=== PATIENT | male | born 1955 | race Caucasian/White ===

== ENCOUNTER 2024-03-23 12:29 | Observation (INO) ==
[~2024-03-23 12:29] MED LIST: Naloxone 0.4 mg VIAL 0.4 mg/ml 1 ml VIAL IV PRN; fentaNYL 100 mcg/2 ml 50 MCG/ML VIAL IV PRN
[2024-03-23] MEDS: Lactated Ringers 1000 ml BAG 1,000 ML IV SCH (13:30)
[2024-03-23 13:48] LABS: Rapid COVID-19 Molecular Undetected (Undetected)
[2024-03-23] MEDS ORDERED: fentaNYL 100 mcg/2 ml 50 MCG/ML VIAL ONE (13:48)
[2024-03-23] MEDS ORDERED: Lidocaine 2% PF 5 ML VIAL ONE (13:48)
[2024-03-23] MEDS ORDERED: Midazolam 2 mg/2 ml VIAL 1 mg/ml 2 ml VIAL (2 mg) ONE (13:48)
[2024-03-23] MEDS ORDERED: Propofol 10 MG/ML 20 ML BTL ONE (13:48)
[2024-03-23] MEDS ORDERED: Ondansetron 4 mg VIAL 2 MG/ML 2 ml VIAL IV PRN (14:30)
[2024-03-23] MEDS ORDERED: Glycopyrrolate IV 0.2 MG/ML 1 ML VIAL ONE (15:31)
[2024-03-23] MEDS ORDERED: Ondansetron 4 mg VIAL 2 MG/ML 2 ml VIAL ONE (15:31)
[2024-03-23] MEDS ORDERED: Dexamethasone IV 4 MG/ML VIAL 1 ml VIAL ONE (15:31)
[2024-03-23] MEDS ORDERED: Sterile Water for Inj 10 ML ONE (15:32)
[2024-03-23] MEDS ORDERED: Furosemide 20 mg/2 ml IV VIAL ONE (15:57)
[2024-03-23] MEDS: Neomycin/Polym/Bacit TOP OINT 15 GM TOPICAL SCH (18:01)
[2024-03-23] MEDS: Ampicillin ADVAN 2 GM in NS 0.9% 100 ML 100 ML IVPB ONE (18:01)
[2024-03-23] MEDS: Buffered Lidocaine 1% SYRIN 1 ml INTRADERM ONE (18:01)
[2024-03-23] MEDS: Gentamicin ADULT 450 MG in NS 0.9% 100 ml BAG 100 ML IVPB ONE (18:01)
[2024-03-23] MEDS: NS 0.9% 1000 ml BAG 1,000 ML IV SCH (18:40)
[2024-03-23] MEDS: Magnesium Hydroxide LIQ 30 ML UDC PO SCH (20:11)
[2024-03-24] MEDS: Benzocaine/Menthol LOZ MT PRN (02:07)
[2024-03-24 05:42] LABS: ABS Lymphocytes 0.6 10^3/uL (1.0-4.8); ABS Monocytes 0.4 10^3/uL (0.0-1.1); ABS Neutrophils 9.2 10^3/uL (1.5-7.6); Hematocrit 38.2 % (38-53); Hemoglobin 12.8 g/dL (13.2-16.3); Lymphocyte % 5.9 %; Mean Corpuscular Hemoglobin 31.2 pg (27-33); Mean Corpuscular Hgb Conc 33.4 g/dL (31-36); Mean Corpuscular Volume 93.5 fL (80-97); Mean Platelet Volume 9.2 fL (7.5-11.2); Platelet Count 239 10^3/uL (150-450); Red Blood Count 4.09 10^6/uL (4.06-5.63); Red Cell Distribution Width 14.5 % (12-17); White Blood Count 10.2 10^3/uL (3.6-10.2)
[2024-03-24 06:20] LABS: Creatinine, Serum 1.17 mg/dL (0.67-1.17); Magnesium 2.2 mg/dL (1.9-2.7); Potassium 4.6 mmol/L (3.5-5.0); eGFR CKD-EPI 67.1 (>60)
[2024-03-24 06:32] VITALS: BP 105/63
[2024-03-24] MEDS: Cholestyramine Resin 4 GM POWDER PO SCH (08:25)
== END 2024-03-24 09:52 | disposition home or self-care (01) ==
LOC: SSU 12:29 → OR 12:29
PROVIDERS: ADMIT Urology; ATTEND Urology